=== PATIENT | male | born 1935 | race Caucasian/White ===

== ENCOUNTER 2023-07-21 07:43 | Outpatient (CLI) | payer MEDICARE, BC | END 2023-07-21 07:44 | disposition critical access hospital (66) | LOC: EMS 07:43 | DX: K62.89 Other specified diseases of anus and rectum (principal); K59.00 Constipation, unspecified | CPT/HCPCS: A0425; A0427 ==

== ENCOUNTER 2023-07-21 08:19 | Emergency (ER) | payer MEDICARE, BC ==
--- NOTE | 2023-07-21 08:30 | ED Physician Documentation ---
PD HPI ABD PAIN - Stated complaint Stated Complaint: CONSTIPATION - History obtained from History obtained from: Patient - History of Present Illness Timing - onset: How many days ago (several days of no BMs and having feeling of rectal fullness, needing to have stool output. having rectal and lower abd cramping pain, that is much worse with severe cramps today.) Timing - details: Gradual onset, Waxing and waning Quality: Cramping, Aching, Pain Location: Suprapubic, LLQ, Other (rectal area) Associated symptoms: Constipation. No: Fever, Nausea, Vomiting, Diarrhea (has had some watery brown stool out in small amounts.) Recently seen: Emergency Dept (seen 2 weeks ago after a fall to right side hip, with fracture treated nonsurgically lateral rgiht hip. Presume greater trochanter by area of pain and pt description. Allowed to ambulate but less movement and walking due to the injury. Takin oxycodone regularly for couple weeks, stopped them yest.) Review of Systems Constitutional: denies: Fever, Chills GI: reports: Abdominal Pain, Constipation. denies: Nausea, Vomiting, Bloody / black stool : denies: Dysuria, Frequency Skin: denies: Rash, Lesions PD PAST MEDICAL HISTORY - Allergies Allergies/Adverse Reactions: Allergies Allergy/AdvReac Type Severity Reaction Status Date / Time No Known Drug Allergies Allergy Verified 07/21/23 08:40 PD ED PE NORMAL - Vitals Vital signs reviewed: Yes - General General: Alert and oriented X 3, Well developed/nourished, Other (appears in considerable pain in waves lasting 30 seconds to minute, then again in 4-5 minutes. Pain is rectal area. ) - Neck Neck: Supple, no meningeal sign, No adenopathy - Cardiac Cardiac: RRR, No murmur - Abdomen Abdomen: Soft, No organomegaly, Other (some distedned. Tender lower left abd without percussion nor rebound tenderness. ). No: Normal bowel sounds (decreased) - Male Male : Deferred - Rectal Rectal: Other (no hemorrhoids. Rectal with baseball sized ball of firm stool in vault, which I tried to break up digitially to the length of my finger. ) - Back Back: No CVA TTP - Derm Derm: Normal color, Warm and dry Results - Vitals Vitals: Vital Signs - 24 hr 07/21/23 07/21/23 07/21/23 08:34 08:59 10:40 Temperature 36.4 C L Heart Rate 85 88 86 Respiratory 20 20 18 Rate Blood Pressure 157/101 H 150/99 H 142/86 H O2 Saturation 96 96 98 07/21/23 07/21/23 07/21/23 12:00 14:00 16:00 Temperature Heart Rate 85 88 82 Respiratory 23 16 16 Rate Blood Pressure 135/84 H 145/84 H 142/78 H O2 Saturation 98 98 98 07/21/23 17:41 Temperature Heart Rate 65 Respiratory 18 Rate Blood Pressure 128/76 O2 Saturation 100 Oxygen O2 Source Room air - Labs Labs: Laboratory Tests 07/21/23 07/21/23 08:45 08:45 WBC 17.5 H RBC 4.86 Hgb 15.3 Hct 44.8 MCV 92.2 MCH 31.5 H MCHC 34.2 RDW 13.5 Plt Count 269 MPV 10.3 Neut # (Auto) 14.5 H Lymph # (Auto) 1.6 Thomas # (Auto) 1.2 H Eos # (Auto) 0.1 Baso # (Auto) 0.0 Absolute Nucleated RBC 0.00 Nucleated RBC % 0.0 Sodium 138 Potassium 3.9 Chloride 103 Carbon Dioxide 26 Anion Gap 9.0 BUN 22 H Creatinine 0.9 Estimated GFR (MDRD) 80 L Glucose 122 H Calcium 10.1 Magnesium 2.0 Total Bilirubin 1.2 H AST 35 ALT 48 Alkaline Phosphatase 130 H Total Protein 7.4 Albumin 4.4 Globulin 3.0 Albumin/Globulin Ratio 1.5 Lipase 38 - Rads (name of study) abd/pelvis CT Relevant Findings:: Prelim report reviewed (large stool bolus in rectum. It was tender. NO feeling of tissue swelling. No blood. ), EMP independent interpretation of test PD Medical Decision Making - ED course Complexity details: reviewed results (I want to disimpact him enough to not have the pains/cramps. It would be nice if a lot came out, but really would be satisfied if moderate amount and relief of pain. ), re-evaluated patient (he has had some small stools out. I did second digital exam. broke up some more of the ball of stool. Given 3rd enema and pt did get some more out. He is comfortable now is the main part, wtithout the lower cramps. ), considered differential (constipation from opioid meds taking due to trochanteric hip fracture. Now with rectal impaction and severe pelvic/rectal cramping. ), d/w patient Departure - Departure Disposition: 01 Home, Self Care Clinical Impression: Lower abdominal pain, Rectal pain, Constipation Condition: Stable Record reviewed to determine appropriate education?: Yes Follow-Up: Asim Hughes MD [Primary Care Provider] - Comments: Your CT scan showed the large amount of stool in the rectum and sigmoid colon. There was moderate amount of stool through the upper colon as well. No signs of other complications or bowel obstruction etc. We should have broken up and loosen the stool in the lower aspect with the digital exam and enemas. I would anticipate this being able to come out a little more readily. At this point home and stay well-hydrated. I would use softeners and laxatives at home with your docusate tablet and also you could use the MiraLAX you have a dose of the 17 g and water every 1 or 2 hours for 2 or 3 doses in also in the morning if you need. This should allow for good output. For your hip, continue with Tylenol and/or ibuprofen for the pains if you are able to get by without the opiate pain medicines. Follow-up with your primary care or return to the ER if you have not gotten more regular output in the next day or so. Return if worse. Forms: PCP List Discharge Date/Time: 07/21/23 17:38
[2023-07-21] MEDS ORDERED: KETOROLAC 15 MG/ML VIAL IVP STA (08:31)
[2023-07-21] MEDS ORDERED: SODIUM CHLORIDE 0.9% 1,000 ML IV STA (08:31)
[2023-07-21] MEDS ORDERED: HYDROmorphone 1 MG/ML CARPUJECT IVP STA ×2 (08:31→17:05)
[2023-07-21 08:51] LABS: BASOPHILS % (AUTO) 0.2 %; EOSINOPHILS # (AUTO) 0.1 10^3/uL (0.0-0.7); EOSINOPHILS % (AUTO) 0.3 %; HCT - HEMATOCRIT 44.8 % (42.0-52.0); HGB - HEMOGLOBIN 15.3 g/dL (14.0-18.0); LYMPHOCYTES # (AUTO) 1.6 10^3/uL (1.5-3.5); LYMPHOCYTES % (AUTO) 9.2 %; MEAN CORPUSCULAR HEMOGLOBIN 31.5 pg (27.0-31.0); MEAN CORPUSCULAR HGB CONC 34.2 g/dL (32.0-36.0); MEAN CORPUSCULAR VOLUME 92.2 fL (80.0-94.0); MEAN PLATELET VOLUME 10.3 fL (7.4-11.4); MONOCYTES # (AUTO) 1.2 10^3/uL (0.0-1.0); MONOCYTES % (AUTO) 6.9 %; NEUTROPHILS # (AUTO) 14.5 10^3/uL (1.5-6.6); NEUTROPHILS % (AUTO) 83.1 %; PLT - PLATELET COUNT 269 10^3/uL (130-450); RED BLOOD COUNT 4.86 10^6/uL (4.70-6.10); RED CELL DISTRIBUTION WIDTH 13.5 % (12.0-15.0); WHITE BLOOD COUNT 17.5 x10^3/uL (4.8-10.8)
[2023-07-21 09:04] LABS: ALBUMIN 4.4 g/dL (3.2-5.5); ALBUMIN/GLOBULIN RATIO 1.5 (1.0-2.2); BILIRUBIN,TOTAL 1.2 mg/dL (0.2-1.0); CALCIUM 10.1 mg/dL (8.5-10.3); CREATININE 0.9 mg/dL (0.6-1.3); POTASSIUM 3.9 mmol/L (3.5-4.5); TOTAL PROTEIN 7.4 g/dL (6.4-8.9)
[2023-07-21] MEDS ORDERED: MINERAL OIL ENEMA 133 ML BOTTLE RC STA (09:22)
[2023-07-21] MEDS ORDERED: SALINE ENEMA 133 ML BOTTLE RC STA ×2 (11:40→15:15)
[2023-07-21] MEDS ORDERED: LACTULOSE 10 GM /15 ML UDC PO STA (11:40)
[2023-07-21] MEDS ORDERED: iohexoL-300 100 ML VIAL IVP ONE (14:25)
--- NOTE | 2023-07-21 14:41 | CT Report ---
PROCEDURE: ABDOMEN/PELVIS W INDICATIONS: lower abd /rectal pain CONTRAST: 100mL Omni 300 TECHNIQUE: After the administration of intravenous contrast, 5 mm thick sections acquired from the diaphragms to the symphysis. 5 mm thick coronal and sagittal reformats were acquired. For radiation dose reducti on, the following was used: automated exposure control, adjustment of mA and/or kV according to chio ent size. COMPARISON: None FINDINGS: Image quality: Excellent. Lung bases and heart: Unremarkable. Liver: No solid mass. Gallbladder and biliary tree: No radiopaque stones or wall thickening. No biliary dilation. Spleen: No splenomegaly. Pancreas: No pancreatic ductal dilation. Adrenals: No adrenal nodule. Kidneys and ureters: No hydronephrosis. No renal cystic lesion which requires follow up. No solid mas s. Bowel and peritoneum: No bowel distension. No pathologic free fluid. Large rectal stool load and mode rate to large colonic stool load. Circumferential thickening of the rectal wall with mild mesorectal edema, but normal enhancement. Small hiatal hernia. Lymph nodes: No central or retroperitoneal adenopathy. Vessels: No infrarenal aortic aneurysm. PELVIS Reproductive organs: There are clips of the prostate. Bladder: No abnormal wall thickening, accounting for underdistension. Pelvic lymph nodes: No pelvic adenopathy by size criteria. Bones: No aggressive osseous abnormality. Other: No significant ventral or inguinal hernia. IMPRESSION: Large rectal and moderate to large colonic stool load, without evidence of stercoral colitis/proctiti s. Reviewed by: Asim Ellison MD on 07/21/2023 2:40 PM PST Approved by: Asim Ellison MD on 07/21/2023 2:40 PM PST Station ID: [id number]
[2023-07-21 17:44] VITALS: BP 128/76; O2SAT 100
== END 2023-07-21 17:38 | disposition home or self-care (01) ==
LOC: ED 08:19
DX: K59.00 Constipation, unspecified (principal); K56.49 Other impaction of intestine; Z79.891 Long term (current) use of opiate analgesic
CPT/HCPCS: 36415; 80053; 83690; 83735; 85025; 96374; 96375; 96376; 99283

== ENCOUNTER 2023-12-18 13:41 | Emergency (ER) | payer MEDICARE, BC ==
--- NOTE | 2023-12-18 14:25 | ED Physician Documentation ---
History of Present Illness - Stated complaint Stated Complaint: ,PX - Chief complaint Chief Complaint: General - Additonal information Additional information: 88-year-old male presents emergency department for urinary retention. Patient said that he had prostate cancer about 10 years ago Still has prostate. Patient says that he has recently been using his stationary bike a lot more frequently and it has been quite painful to his groin area. He started noticing some hematuria yesterday and was having some bladder spasms with that today around 1 AM patient started noticing severe bladder pain with spasms with more naa hematuria with 1 blood clot and has not been able to void since then. No fevers or chills. No flank pain. Patient denies use of any blood thinners. PD PAST MEDICAL HISTORY - Past Medical History Past Medical History: Yes Cardiovascular: Hypertension Respiratory: None Neuro: None Endocrine/Autoimmune: None GI: None : Other HEENT: None Psych: None Musculoskeletal: None Derm: None - Past Surgical History Past Surgical History: Yes General: Other - Allergies Allergies/Adverse Reactions: Allergies Allergy/AdvReac Type Severity Reaction Status Date / Time No Known Drug Allergies Allergy Verified 12/18/23 15:59 - Social History Does the pt smoke?: No Smoking Status: Never smoker Does the pt drink ETOH?: No - Immunizations Immunizations are current?: Yes - POLST Patient has POLST: No PD ED PE NORMAL - Vitals Vital signs reviewed: Yes - General General: Alert and oriented X 3, No acute distress, Well developed/nourished - Abdomen Abdomen: Normal bowel sounds, Soft, Non tender, Non distended, No organomegaly - Male Male : Corporate Analyst present (LESLIE Jones at bedside, normal exam of circumcised penis. ) - Back Back: No CVA TTP - Derm Derm: Normal color, Warm and dry, No rash Results - Vitals Vitals: Vital Signs - 24 hr 12/18/23 12/18/23 12/18/23 13:53 16:13 18:00 Temperature 36.5 C 36.3 C L Heart Rate 69 65 73 Respiratory 20 14 19 Rate Blood Pressure 159/84 H 142/80 H 142/82 H O2 Saturation 98 98 97 12/18/23 19:12 Temperature Heart Rate 66 Respiratory 16 Rate Blood Pressure 144/60 H O2 Saturation 97 Oxygen O2 Source Room air - Labs Labs: Laboratory Tests 05/12/18/23 12/18/23 14:40 14:40 14:45 WBC 8.8 RBC 4.88 Hgb 15.3 Hct 45.2 MCV 92.6 MCH 31.4 H MCHC 33.8 RDW 13.4 Plt Count 176 MPV 10.5 Neut # (Auto) 6.7 H Lymph # (Auto) 1.4 L [place] # (Auto) 0.6 Eos # (Auto) 0.1 Baso # (Auto) 0.0 Absolute Nucleated RBC 0.00 Nucleated RBC % 0.0 Sodium 134 L Potassium 3.8 Chloride 99 L Carbon Dioxide 27 Anion Gap 8.0 BUN 26 H Creatinine 0.9 Estimated GFR (MDRD) 80 L Glucose 118 H Calcium 9.8 Magnesium 2.1 Total Bilirubin 1.1 H AST 29 ALT 22 Alkaline Phosphatase 85 Total Protein 7.2 Albumin 4.5 Globulin 2.7 Albumin/Globulin Ratio 1.7 Lipase 22 Urine Color YELLOW Urine Clarity CLOUDY Urine pH 7.0 Ur Specific Hooper 1.015 Urine Protein TRACE Urine Glucose (UA) NEGATIVE Urine Ketones NEGATIVE Urine Occult Blood LARGE H Urine Nitrite NEGATIVE Urine Bilirubin NEGATIVE Urine Urobilinogen 0.2 (NORMAL) Ur Leukocyte Esterase NEGATIVE Urine RBC TNTC H Urine WBC 0-3 Ur Squamous Epith Cells NONE SEEN Urine Bacteria None Seen Ur Microscopic Review INDICATED Urine Culture Comments NOT INDICATED - Rads (name of study) CT abdomen pelvis With con Relevant Findings:: Final report received, EMP independent interpretation of test, Other (Bladder has small areas of air within the bladder lumen no blockage or other acute abnormal findings in the bladder.) PD Medical Decision Making - ED course ED course: 88-year-old male presents the ER with urinary retention and difficulty voiding. Patient said that he has not been able to void more than a couple dribbles. Differentials include but are not limited to blockage due to blood clot versus hematuria, bladder spasms, bladder malignancy. Labs are collected in the emergency department he does not have any leukocytosis no anemia. No significant electrolyte abnormalities BUN slightly elevated most likely due to a mild ROBERT although normal creatinine. Urinalysis was complete and did not show any leukocytes or nitrites it did have a large amount of blood. CT abdomen pelvis was complete for further evaluation of his urinary retention given his history of prostate cancer and recent urinary retention and wanted to make sure there was not any sort of mass or other bladder abnormalities. No acute findings were visualized there was some areas of air noted but this is most likely due to the recent introduction of the Gonzales catheter that was placed prior to CT imaging. A Gonzales catheter was placed and we were able to drain bladder without any difficulty there was no large clots noted or visualized. He did have hematuria. After Gonzales catheter was placed we attempted to remove it to see if patient was able to void after giving him some IV fluids but unfortunately patient was still unable to void. Gonzales catheter was placed back and patient he was told to refrain from using his stationary bike I believe that he is experiencing hematuria from trauma from, she has a stationary bike yesterday. He is told to follow-up with his primary care provider and referral to urology was also given to the patient to have his Gonzales catheter removed and have further evaluation of this new urinary retention. Return precautions given Gonzales catheter care All questions answered safe for discharge with his . Departure - Departure Disposition: 01 Home, Self Care Clinical Impression: Hematuria, Urinary retention Condition: Stable Instructions: ED Catheter Care Gonzales, ED Hematuria, ED Retention Urinary Male Follow-Up: Teofilo Haile MD [Provider Admit Priv/Credential] - Comments: Thank you for trusting us with your care. We have placed a Gonzales catheter for your hematuria also known as blood in your urine. At this point in time I think it is important that you keep the catheter in until you are able to follow-up with either your primary care provider or urology. I have sent a referral for you to follow-up with her urologist here although you will need a referral from your primary care provider for you to follow-up with urology. Make sure that you are drinking plenty of fluids and if you are starting to notice any worsening more dark red urine or blood clots or if you starting to notice no urinary output please come back into the emergency department for further intervention and evaluation. I Would avoid using her stationary bike until this resolves Forms: PCP List Discharge Date/Time: 12/18/23 19:23
[2023-12-18] MEDS ORDERED: iohexoL-300 100 ML VIAL ONE (14:44)
[2023-12-18 14:50] LABS: BILIRUBIN,URINE NEGATIVE (NEGATIVE); GLUCOSE, URINE (UA) NEGATIVE (NEGATIVE); KETONES,URINE (UA) NEGATIVE (NEGATIVE); LEUKOCYTE ESTERASE, URINE NEGATIVE (NEGATIVE); NITRITE,URINE NEGATIVE (NEGATIVE); OCCULT BLOOD,URINE LARGE (NEGATIVE); PROTEIN,URINE TRACE mg/dL (NEGATIVE); UROBILINOGEN,URINE 0.2 (NORMAL) E.U./dL (NORMAL)
[2023-12-18 14:50] LABS: BASOPHILS % (AUTO) 0.5 %; EOSINOPHILS # (AUTO) 0.1 10^3/uL (0.0-0.7); EOSINOPHILS % (AUTO) 0.8 %; HCT - HEMATOCRIT 45.2 % (42.0-52.0); HGB - HEMOGLOBIN 15.3 g/dL (14.0-18.0); LYMPHOCYTES # (AUTO) 1.4 10^3/uL (1.5-3.5); LYMPHOCYTES % (AUTO) 16.2 %; MEAN CORPUSCULAR HEMOGLOBIN 31.4 pg (27.0-31.0); MEAN CORPUSCULAR HGB CONC 33.8 g/dL (32.0-36.0); MEAN CORPUSCULAR VOLUME 92.6 fL (80.0-94.0); MEAN PLATELET VOLUME 10.5 fL (7.4-11.4); MONOCYTES # (AUTO) 0.6 10^3/uL (0.0-1.0); MONOCYTES % (AUTO) 7.1 %; NEUTROPHILS # (AUTO) 6.7 10^3/uL (1.5-6.6); NEUTROPHILS % (AUTO) 75.2 %; PLT - PLATELET COUNT 176 10^3/uL (130-450); RED BLOOD COUNT 4.88 10^6/uL (4.70-6.10); RED CELL DISTRIBUTION WIDTH 13.4 % (12.0-15.0); WHITE BLOOD COUNT 8.8 x10^3/uL (4.8-10.8)
[2023-12-18 14:53] LABS: CLARITY,URINE CLOUDY (CLEAR)
[2023-12-18 15:04] LABS: RBC,URINE TNTC /HPF (0-5); SQUAMOUS EPITHELIAL CELL,UR NONE SEEN (<= Few); WBC,URINE 0-3 /HPF (0-3)
[2023-12-18 15:04] LABS: ALBUMIN 4.5 g/dL (3.2-5.5); ALBUMIN/GLOBULIN RATIO 1.7 (1.0-2.2); BILIRUBIN,TOTAL 1.1 mg/dL (0.2-1.0); CALCIUM 9.8 mg/dL (8.5-10.3); CREATININE 0.9 mg/dL (0.6-1.3); MAGNESIUM 2.1 mg/dL (1.7-2.3); POTASSIUM 3.8 mmol/L (3.5-4.5); TOTAL PROTEIN 7.2 g/dL (6.4-8.9)
[2023-12-18 15:05] LABS: BACTERIA,URINE None Seen /HPF (None Seen)
[2023-12-18] MEDS: iohexoL-300 100 ML VIAL IVP ONE (16:25)
--- NOTE | 2023-12-18 16:56 | CT Report ---
PROCEDURE: Abdomen/Pelvis W INDICATIONS: urinary retention, hx of prostate cancer CONTRAST: 100ml [id number] TECHNIQUE: After the administration of intravenous contrast, a CT scan of the abdomen and pelvis was performed. Images were recorded and evaluated at appropriate window settings. Reformats: coronal and sagittal. F or radiation dose reduction, the following was used: automated exposure control, adjustment of mA and /or kV according to patient size. COMPARISON: CT abdomen pelvis 07/21/2023 FINDINGS: Image quality: Diagnostic. Lower chest: Unremarkable. Liver: No solid mass. Gallbladder: Unremarkable. Biliary tree: No intrahepatic or extrahepatic dilation, accounting for age. Spleen: No splenomegaly. Pancreas: No pancreatic ductal dilation. Adrenals: No adrenal nodule. Kidneys and ureters: No hydronephrosis. No renal cystic lesion which requires follow up. No solid mas s. Simple bilateral hepatic cysts. Stomach, bowel and peritoneum: No gastric or small bowel dilation. No abnormal wall thickening. No pa thologic free fluid. Lymph nodes: No central or retroperitoneal adenopathy. Vessels: No infrarenal aortic aneurysm. Patent portal vein. 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 Bladder: Bladder is poorly distended with a Gonzales catheter. Diffusely thickened wall is present. Air is present within the lumen in the nondependent portion as well as in the mid lumen. Pelvic lymph nodes: No pelvic adenopathy by size criteria. Bones: No aggressive osseous abnormality. Appearance of old right greater trochanter fracture. Other: No significant ventral or inguinal hernia. IMPRESSION: Urinary bladder is poorly distended with diffusely thickened wall. Areas of air are noted within the bladder lumen. This could be banking representative of air introduced as recent Gonzales catheter placement. How ever, cystitis and other infection/inflammatory etiologies can have a similar appearance. 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 Reviewed by: Leslie Gibbons MD on 12/18/2023 4:55 PM PDT Approved by: Leslie Gibbons MD on 12/18/2023 4:55 PM PDT Station ID: [id number]
[2023-12-18] MEDS: SODIUM CHLORIDE 0.9% 500 ML IV ONE (17:09)
[2023-12-18 18:13] VITALS: O2SAT 97
[2023-12-18 19:14] VITALS: BP 144/60
== END 2023-12-18 19:23 | disposition home or self-care (01) ==
LOC: ED 13:41
DX: R33.9 Retention of urine, unspecified (principal); R31.9 Hematuria, unspecified; I10 Essential (primary) hypertension
CPT/HCPCS: 36415; 51702; 74177; 80053; 81001; 83690; 83735; 85025; 99283; 99284; Q9967; 81003; 87086